=== PATIENT | female | born 1975 | race Caucasian/White ===

== ENCOUNTER 2017-10-06 12:01 | Emergency (ER) | payer BC, OTHER, MEDICAID ==
[~2017-10-06] VITALS: Ht 157.5 cm; Wt 74.8 kg
[~2017-10-06 12:01] MED LIST: ACETAMINOPHEN325 M1 PO; BACTRIM DS TAB1 EAC1 PO; BENADRYL25 MG PO; BIRTH CONTROL; CLARITIN10 MG PO; HYDROCODONE-AP1 EAC6 PO; LEXAPRO 10 MG T10 MG PO; PRILOSEC 20 MG20 MG PO; PRISTIQ; PRISTIQ100 MG PO; ULTRAM 50MG TAB50 MG PO; VIBRAMYCIN 100100 M2 PO; VISTARIL 25 MG25 M1 PO; XANAX1 MG PO; ZOFRAN ODT4 MG PO; ZOLOFT100 MG PO
[2017-10-06] MEDS ORDERED: ABILIFY 5 MG TAB5 M1 PO (12:14)
[2017-10-06] MEDS ORDERED: CLONIDINE0.1 PO (12:15)
[2017-10-06] MEDS ORDERED: TORADOL 10 MG T10 MG PO (14:41)
[2017-10-06] MEDS ORDERED: ZOFRAN ODT4 MG PO (14:42)
[2017-10-06] MEDS ORDERED: PROMS25 WY RECTAL (14:42)
[2017-10-06] MEDS ORDERED: BUTALB-APAP-CA1 EACH PO (14:42)
[2017-10-06 17:06] VITALS: BP 126/73
== END 2017-10-06 17:06 | disposition home or self-care (01) ==
LOC: M.ERS 12:01
DX: R51 Headache (principal); Z88.1 Allergy status to other antibiotic agents; Z88.8 Allergy status to other drugs, medicaments and biological substances

== ENCOUNTER 2017-11-04 10:47 | Emergency (ER) | payer BC, OTHER, MEDICAID ==
[~2017-11-04] VITALS: Ht 157.5 cm; Wt 75.8 kg
[~2017-11-04 10:47] MED LIST changes: +ABILIFY 5 MG TAB5 M1 PO; +BUTALB-APAP-CA1 EACH PO; +CLONIDINE0.1 PO; +PROMS25 WY RECTAL; +TORADOL 10 MG T10 MG PO
[2017-11-04 14:07] VITALS: BP 107/61
== END 2017-11-04 14:08 | disposition home or self-care (01) ==
LOC: M.ERS 10:47
DX: G43.909 Migraine, unspecified, not intractable, without status migrainosus (principal); Z88.1 Allergy status to other antibiotic agents; Z88.2 Allergy status to sulfonamides